=== PATIENT | male | born 1980 ===

== ENCOUNTER → 2017-07-11 | Outpatient (CLI) | payer OTHER ==
[~2017-07-11] MED LIST: OXYC-57 PO
--- NOTE | 2017-07-11 12:26 | DIAGNOSTIC IMAGING REPORT ---
ABDOMEN FOR HERNIA CLINICAL HISTORY: K40.90 Right inguinal hernia Right groin TECHNIQUE: Dynamic ultrasound imaging of the inguinal region COMPARISON STUDY: None FINDINGS: Fat-containing reducible right inguinal hernia. Hernia has a maximum transverse diameter of 1.1 cm. Herniated best seen with the patient in the standing position with Valsalva. IMPRESSION: Fat-containing reducible right inguinal hernia The above report was generated using voice recognition software. It may contain grammatical, syntax or spelling errors. Electronically signed by: Conrad Escalona M.D. 07/11/2017 12:25 PM Dictated Date/Time: 07/11/2017 12:24 PM
== END | disposition home or self-care (01) ==
LOC: C.ULTRBC 11:17
PROVIDERS: ATTEND Surgery
DX: K40.90 Unilateral inguinal hernia, without obstruction or gangrene, not specified as recurrent (principal)

== ENCOUNTER 2017-07-19 08:51 | Day surgery (SDC) | payer OTHER ==
[2017-07-17 13:21] VITALS: BMI 17.0
[~2017-07-19] VITALS: Ht 180.3 cm; Wt 58.2 kg
[~2017-07-19 08:51] MED LIST changes: +CEFAZOLIN 2000 MG/60 ML D5W IV SCH; +LACTATED RINGER'S 1000ML 1,000 ML IV SCH; -OXYC-57 PO; +PATIENT'S ALLERGY INFO NEEDS ENTERED SCH
[2017-07-19 09:58] VITALS: BP 145/92; PULSE 82; TEMP 36.6; O2SAT 100; Ht 180.3 cm; Wt 58.2 kg
[2017-07-19] MEDS ORDERED: PROPOFOL IV EMULSION 10 MG/ML 20 ML VIAL IV ONE (10:02)
[2017-07-19] MEDS ORDERED: FENTANYL CITRATE INJ 50 MCG/1 ML 2 ML VIAL ONE (10:02)
[2017-07-19] MEDS ORDERED: LIDOCAINE HCL 2% 2 ML VIAL (20MG/ML) ONE (10:02)
[2017-07-19] MEDS ORDERED: ONDANSETRON INJ 2 MG/ML 2 ML VIAL ONE (10:02)
[2017-07-19] MEDS ORDERED: MIDAZOLAM HCL 1 MG/ML 2ML VIAL ONE (10:02)
--- NOTE | 2017-07-19 11:05 | History & Physical Bridge Note ---
H&P Re-Evaluation Bridge Note: I have examined the patient, reviewed the History & Physical and in the interval since the performance of the History & Physical I have noted the following changes of clinical significance: No changes noted
[2017-07-19] MEDS ORDERED: BUPIVACAINE 0.5 % 5 MG/1 ML MPF 30ML VIAL ONE (11:11)
[2017-07-19] MEDS ORDERED: EpHEDrine SULFATE INJ 50 MG/ML AMP IV PRN (11:15)
[2017-07-19] MEDS ORDERED: ATROPINE SULFATE 0.1 MG/ML 5ML SYR IV PRN (11:15)
[2017-07-19] MEDS ORDERED: ONDANSETRON INJ 2 MG/ML 2 ML VIAL IV PRN ×2 (11:15→13:00)
[2017-07-19] MEDS ORDERED: FENTANYL CITRATE INJ 50 MCG/1 ML 2 ML VIAL IV PRN (11:15)
[2017-07-19] MEDS ORDERED: ROCURONIUM BROMIDE 10 MG/ML 5 ML VIAL IV ONE (11:52)
[2017-07-19] MEDS ORDERED: KETOROLAC TROMETHAMINE 30 MG/ML VIAL ONE (12:40)
[2017-07-19] MEDS ORDERED: GLYCOPYRROLATE INJ 0.2 MG/ML VIAL ONE (12:44)
[2017-07-19] MEDS ORDERED: NEOSTIGMINE METHYLSULFATE 5 MG/5 ML SYR ONE (12:46)
[2017-07-19] MEDS ORDERED: LACTATED RINGER'S 1000ML 1,000 ML IV SCH (12:57)
[2017-07-19] MEDS ORDERED: OXYC-57 PO (12:58)
[2017-07-19] MEDS ORDERED: OXYCODONE/ACETAMINOPHEN 5-325 TAB PO PRN (13:00)
[2017-07-19] MEDS ORDERED: MoRPHine SULFATE 4 MG/ML 1 ML CARP\\VIAL IV PRN (13:00)
--- NOTE | 2017-07-19 13:00 | Discharge Instructions ---
Discharge Instructions Date of Service Jul 19, 2017. Visit Reason for Visit: Right Inguinal Hernia Discharge Discharge Diagnosis / Problem: Laparoscopic hernia repair Discharge Goals Goal(s): Decrease discomfort Activity Recommendations Activity Limitations: as noted below Lifting Limitations: no more than 10 pounds Shower/Bathe: no limitations (ok to shower) Driving or Machine Use: 5-7 days Anesthesia . Post Anesthesia Instructions: If you have had General Anesthesia or IV Sedation: * Do not drive today. * Resume driving when surgeon permits. * Do not make important decisions or sign legal documents today. * Call surgeon for: 1. Temperature elevations greater than 101 degrees F. 2. Uncontrollable pain. 3. Excessive bleeding. 4. Persistent nausea and vomiting. 5. Medication intolerance (nausea, vomiting or rash). * For nausea and vomiting use only clear liquids such as: tea, soda, bouillon until nausea subsides, then gradually increase diet as tolerated. * If you have any concerns or questions, call your surgeon's office. If physician is unavailable and it is an emergency, call 911 or go to the nearest emergency room. . Instructions / Follow-Up Instructions / Follow-Up Dr. Reid as planned in 1-2 weeks, call [phone] for any questions You may take ibuprofen 600 mg every 6 hours as needed for pain between Percocet Diet Recommendations Recommended Home Diet: no limitations Procedures Procedures Performed: Bilateral Laparoscopic Inguinal Hernia Repair Pending Studies Studies pending at discharge: no Medical Emergencies . Who to Call and When: Medical Emergencies: If at any time you feel your situation is an emergency, please call 911 immediately. . Non-Emergent Contact Non-Emergency issues call your: Surgeon Call Non-Emergent contact if: you have a fever, temperature is above 101.5, your pain is not controlled, wound has increased pain, you have any medication questions . . "Provider Documentation" section prepared by Gabe Crenshaw. .
--- NOTE | 2017-07-19 13:02 | [facility] Post Operative Brief Note ---
Immediate Operative Summary Operative Date Jul 19, 2017. Pre-Operative Diagnosis Right Inguinal Hernia Post-Operative Diagnosis Bilateral Inguinal Hernia Procedure(s) Performed Bilateral Laparoscopic Inguinal Hernia Repair Surgeon Dr. Reid Fishing Vessel Deckhand Surgeon(s) Yury Crenshaw PA-C Estimated Blood Loss 3 cc Findings Right indirect inguinal hernia, left cord lipoma. Progrip mesh placed bilaterally. Specimens None Drains None Anesthesia GETA Complication(s) None Disposition Recovery Room / PACU
[2017-07-19] MEDS ORDERED: CEFAZOLIN SOD 1 GM VIAL ONE (13:06)
--- NOTE | 2017-07-19 13:08 | [facility] Operative Report ---
Operative Report Operative Date Jul 19, 2017. Pre-Operative Diagnosis Right Inguinal Hernia Post-Operative Diagnosis Bilateral inguinal hernia Procedure(s) Performed laparoscopic bilateral inguinal hernia repair Surgeon Dr. Reid Diesel Bus Mechanic Surgeon(s) Yury Crenshaw PA-C Estimated Blood Loss 3 cc Findings Right indirect inguinal hernia, left cord lipoma. Progrip mesh placed bilaterally. Specimens None Drains None Anesthesia GETA Complication(s) None Disposition Recovery Room / PACU Indications 36 year old male with symptomatic right inguinal hernia, plan for laparoscopic right inguinal hernia repair, possible left. The risks of the procedure were discussed, all questions were answered, and the patient agreed to proceed with surgery as planned. Description of Procedure The patient was properly identified, consented, and taken to the operating room where he was placed in the supine position. General endotracheal anesthesia was induced. SCDs and a safety belt were placed. A santamaria catheter was placed. Preoperative antibiotics were administered. The patient's groins and abdomen were prepped and draped in the standard sterile fashion. Surgical timeout was performed and all parties were in agreement that this was the correct patient and procedure to be performed and we continued as planned. A transverse infraumbilical incision was made to the left of midline with electrocautery and deepened down to the fascia with blunt dissection. A transverse incision was made in the anterior rectus sheath on the left. The rectus muscle was pulled laterally exposing the posterior rectus sheath. A Silvina-Lechuga was used to bluntly dissect the preperitoneal space down to the pubic symphysis. This was then replaced with a laparoscopic preperitoneal dissection balloon, which was inflated under direct visualization and held in place for approximately 30 seconds. This was then removed and the preperitoneal space was insufflated with carbon dioxide which the patient tolerated without incident. Two 5 mm ports were then placed in the midline. Dissection started on the right, beginning laterally at the anterior superior iliac spine. Evan's ligament was then dissected medially. The cord structures were circumferentially dissected. A small indirect hernia was noted. It was dissected away from the cord structures. The contralateral side was then dissected in a similar manner, and a moderate cord lipoma was noted. Parietex Progrip mesh was placed bilaterally and covered the direct, indirect, and femoral spaces. The mesh was held in place, the ports were removed, and the space was allowed to collapse. The anterior rectus sheath fascia was closed with 3-0 Vicryl suture. The skin of all port sites were closed with 4-0 Monocryl subcuticular suture, and Dermabond was placed over the incisions. The patient was extubated in the operating room and taken to the PACU for recovery without apparent incident. Any air in the scrotum was reduced, and the testicles were confirmed to be in the scrotum. All sponge, instrument, and needle counts were correct at the conclusion of the procedure. The patient tolerated the procedure well. I attest to the content of the Intraoperative Record and any orders documented therein. Any exceptions are noted below.
--- NOTE | 2017-07-19 13:20 | Anesthesiology Progress Note ---
Anesthesia Post Op Note Date & Time Jul 19, 2017 at 13:20 Vital Signs Pain Intensity: 0 Vital Signs Past 12 Hours Date Time Temp Pulse Resp B/P (MAP) Pulse Ox O2 Delivery O2 Flow Rate FiO2 07/19/17 13:11 104/57 07/19/17 13:09 60 18 07/19/17 13:09 60 18 100 07/19/17 13:06 106/59 07/19/17 13:04 66 17 100 07/19/17 13:04 67 17 07/19/17 13:01 99/62 07/19/17 13:00 105/55 07/19/17 12:59 35.8 77 22 105/55 100 Mask 10 07/19/17 12:59 81 21 99 07/19/17 12:59 81 21 07/19/17 09:58 36.6 82 16 145/92 (109) 100 Room Air Notes Mental Status: alert / awake / arousable, participated in evaluation Pt Amnestic to Procedure: Yes Nausea / Vomiting: adequately controlled Pain: adequately controlled Airway Patency, RR, SpO2: stable & adequate BP & HR: stable & adequate Hydration State: stable & adequate Anesthetic Complications: no major complications apparent
[2017-07-19 13:45] VITALS: BP 116/79; PULSE 76; TEMP 36.3; O2SAT 100
[2017-07-19 14:15] VITALS: BP 110/74; PULSE 76; TEMP 36.3; O2SAT 100
[2017-07-19 14:45] VITALS: BP 117/71; PULSE 69; TEMP 36.3; O2SAT 100
[2017-07-19 15:25] VITALS: BP 96/65; PULSE 69; TEMP 36.3; O2SAT 100
[2017-07-19 15:55] VITALS: BP 106/69; PULSE 70; TEMP 36.3; O2SAT 99
== END 2017-07-19 16:10 | disposition home or self-care (01) ==
LOC: C.ACU 08:51
PROVIDERS: ATTEND Surgery
DX: K40.90 Unilateral inguinal hernia, without obstruction or gangrene, not specified as recurrent (principal); D17.6 Benign lipomatous neoplasm of spermatic cord